=== PATIENT | male | born 1985 | race Caucasian/White ===

== ENCOUNTER 2018-08-24 11:02 | Emergency (ER) | payer MEDICARE, MEDICAID ==
--- NOTE | 2018-08-24 11:45 | UC ---
General HPI - HPI Summary HPI Summary: per mother, pt came up the stairs at home with injuries to his face and L knee. she thinks he fell, possibly down stairs but she is not certain and pt can not recall. Neither of then know if he had a seizure or not. He has had sz's since childhood but they are rare, maybe once a year. last sz was a year ago. mom offers that he has been having a 2-3 year hx of increasing difficulty with walking which causes him to fall. he last saw neurology (Dr Begum at [facility]) about 6 years ago. mom notes that he is not acting himself right now. she also confirms that he is confused which is new and when questioned about his twisting type movements, she confirms that that is new since the fall this am. pt denies current headache, neck and back pain but again is a questionable historian. - History of Current Complaint Chief Complaint: UCTrauma Stated Complaint: S/P FALL LEFT KNEE/BLOODY NOSE Time Seen by Provider: 08/24/18 11:27 Hx Obtained From: Patient, Family/Seed Corn Manager Production Hx From Patient Unobtainable Due To: Altered Mental Status Onset/Duration: Sudden Onset Pain Intensity: 8 - Allergy/Home Medications Allergies/Adverse Reactions: Allergies Allergy/AdvReac Type Severity Reaction Status Date / Time No Known Allergies Allergy Verified 08/24/18 11:31 PMH/Surg Hx/FS Hx/Imm Hx Neurological History: Seizures - Surgical History Surgical History: Yes Surgery Procedure, Year, and Place: Appendectomy - Family History Known Family History: Positive: None - Social History Lives: With Family Alcohol Use: None Substance Use Type: None Smoking Status (MU): Never Smoked Tobacco Type: Cigarettes Amount Used/How Often: 1/2 pack daily - Immunization History Most Recent Influenza Vaccination: no Review of Systems All Other Systems Reviewed And Are Negative: No Musculoskeletal: Positive: Other: - R head and face pain. Denies neck/back pain Neurological: Negative: Headache - Comments Additional Review of Systems Comments: PT HAS AMS THUS ROS LIMITED Physical Exam Triage Information Reviewed: Yes Vital Signs: Initial Vital Signs Temp 98.2 F 08/24/18 11:23 Pulse 107 08/24/18 11:23 Resp 20 08/24/18 11:23 BP 119/96 08/24/18 11:23 Pulse Ox 96 08/24/18 11:23 Vital Signs Reviewed: Yes Eyes: Positive: Conjunctiva Clear, Other: - perrl, eomi ENT: Positive: Pharynx normal, TMs normal, Other - Unable to see turbinates on R due to swelling but no overt septal hematomas. fresh blood noted. Neck: Positive: Supple, Nontender, No Lymphadenopathy, Other: - c-spine non tender. Respiratory: Positive: Chest non-tender, Lungs clear, Normal breath sounds Cardiovascular: Positive: RRR, No Murmur Abdomen Description: Positive: Nontender, No Organomegaly, Soft. Negative: Distended, Guarding Bowel Sounds: Positive: Present Musculoskeletal: Positive: Other: - R side of head/face with extensive bruising , swelling and tenderness including nose. Dry blood noted. No overt occlusion with rom mouth. c-spine, back, pelvis, bue's and rle are non tender. L knee is tender and mildly swollen. rest of lle is non tender. Neurological: Positive: Other: - Alert but confused to details of injury. only responds with yes/no answers. able to perform basic commands. CN grossly intact. sensation and 5/5 strength intact x 4. constant rhythmic movements(new since injury) thus no reflexes obtained. no attempts to test gait. GCS=(4/3/6 ) 13. Psychological: Positive: Normal Response To Family Skin: Negative: Rashes Course/Dx - Course Course Of Treatment: family agrees to ER transfer. [facility] does not have neurology and mother declined [place]. they will go to [facility] by EMD. Report called to Dr Hinojosa. He was advised of acute confusion, trauma to R head/face/L knee and new onset chores/rhythmic movements since injury and sz hx. - Differential Dx - Multi-Symptom Differential Diagnoses: Other - includes but not limited to: sz, post ictal with secondary trauma. worsening chronic intracranial pathology given worsening gait disturbance with falls. sz medication toxicity. acute intracranial pathology. - Diagnoses Provider Diagnosis: Facial trauma, Head trauma, Acute focal neurological deficit, Chorea Discharge - Sign-Out/Discharge Documenting (check all that apply): Patient Departure All imaging exams completed and their final reports reviewed: No Studies - Discharge Plan Condition: Stable Disposition: TRANS HIGHER LVL OF CARE FAC Referrals: Terri Scales MD [Primary Care Provider] - - Billing Disposition and Condition Condition: STABLE Disposition: Trans Higher Lvl of Care Fac
[2018-08-24 12:01] VITALS: BP 160/72
== END 2018-08-24 11:58 | disposition short-term general hospital (02) ==
LOC: UCCORT 11:02
DX: S09.93XA Unspecified injury of face, initial encounter (principal); S09.90XA Unspecified injury of head, initial encounter; W10.9XXA Fall (on) (from) unspecified stairs and steps, initial encounter; Y92.009 Unspecified place in unspecified non-institutional (private) residence as the place of occurrence of the external cause; R29.818 Other symptoms and signs involving the nervous system; G25.5 Other chorea
CPT/HCPCS: 99213; G0463

== ENCOUNTER 2018-08-24 12:59 | Inpatient (IN) | payer MEDICARE, MEDICAID ==
--- NOTE | 2018-08-24 13:27 | ED ---
Adult Trauma - HPI Summary HPI Summary: This pt is a 33 y/o male presenting to [facility] via EMS from [facility] for trauma to the face and knees s/p unwitnessed fall this morning. Mother states she thinks pt possibly fell after his knee gave out but is not certain. Pt reports he does not remember what happened or how he fell. He does not know if he had head strike. Pt has hx of seizures but neither mother or pt know if pt had a seizure today. Pt presents to the ED with bruising on his face and knees, c/o facial pain. Additionally pt has constant sudden movements/twitching, which mother states are new since the fall. Denies chest pain, SOB, nausea, vomiting, headache. Pt takes Dilantin for seizures. His neurologist is Dr. Begum. - History of Current Complaint Chief Complaint: EDHeadInjury Stated Complaint: FALL Time Seen by Provider: 08/24/18 13:09 Hx Obtained From: Patient, Family/Patient Care Nursing Assistant - Mother Mechanism of Injury: Fall Loss of Consciousness: prolonged (minutes) Onset/Duration: Started Hours Ago, Traumatic, Still Present Onset of Pain: Immediate Current Severity: Moderate Pain Intensity: 4 Pain Scale Used: 0-10 Numeric Location: Other - face Aggravating Factor(s): Nothing Alleviating Factor(s): Nothing Associated Signs & Symptoms: Positive: Loss of Consciousness, Other: - NEG: headache. POS: facial pain, bruising. Negative: SOB, Chest Pain, Fever, Nausea/ Vomiting - Allergy/Home Medications Allergies/Adverse Reactions: Allergies Allergy/AdvReac Type Severity Reaction Status Date / Time No Known Allergies Allergy Verified 08/24/18 11:31 Home Medications: Home Medications Phenytoin CAP(*) [Dilantin CAP(*)] 600 mg PO BEDTIME 08/24/18 [History Confirmed 08/24/18] Potassium Chlor TAB* [Klor Con ER TAB*] 10 meq PO QPM 08/24/18 [History Confirmed 08/24/18] PMH/Surg Hx/FS Hx/Imm Hx Endocrine/Hematology History: Denies: Hx Diabetes Cardiovascular History: Denies: Hx Hypertension Neurological History: Reports: Hx Seizures - Surgical History Surgery Procedure, Year, and Place: Appendectomy Infectious Disease History: No Infectious Disease History: Denies: Traveled Outside the [place] in Last 30 Days - Family History Known Family History: Positive: Cardiac Disease - granfather with [facility] Negative: Hypertension, Diabetes - Social History Alcohol Use: None Substance Use Type: Reports: None Smoking Status (MU): Never Smoked Tobacco Type: Cigarettes Amount Used/How Often: 1/2 pack daily Review of Systems Negative: Fever, Chills ENT: Other - POS: facial pain Negative: Chest Pain Negative: Shortness Of Breath Negative: Vomiting, Nausea Positive: Bruising - in face and knees Neurological: Other - POS: LOC, twitching Negative: Headache All Other Systems Reviewed And Are Negative: Yes Physical Exam - Summary Physical Exam Summary: VITAL SIGNS: Reviewed. GENERAL: Patient is a well-developed and nourished male who is lying comfortable in the stretcher. Patient is not in any acute respiratory distress. HEAD AND FACE: Facial hematoma from his forehead to his cheeks. EYES: PERRLA, EOMI x 2, No injected conjunctiva, no nystagmus. EARS: Hearing grossly intact. Ear canals and tympanic membranes are within normal limits. MOUTH: Oropharynx within normal limits. NECK: Supple, trachea is midline, no adenopathy, no JVD, no carotid bruit, no c- spine tenderness, neck with full ROM. CHEST: Symmetric, no tenderness at palpation LUNGS: Clear to auscultation bilaterally. No wheezing or crackles. CVS: Regular rate and rhythm, S1 and S2 present, no murmurs or gallops appreciated. ABDOMEN: Soft, non-tender. No signs of distention. No rebound, no guarding, and no masses palpated. Bowel sounds are normal. EXTREMITIES: FROM in all major joints. Pt has ecchymosis in both knees. NEURO: Alert and oriented x 3. Speech is normal and follows commands. Constant movements. SKIN: Dry and warm GCS: 15 Triage Information Reviewed: Yes Vital Signs On Initial Exam: Initial Vitals Temp Pulse Resp BP Pulse Ox 99.2 F 106 19 120/95 94 08/24/18 13:03 08/24/18 13:03 08/24/18 13:03 08/24/18 13:03 08/24/18 13:03 Vital Signs Reviewed: Yes Diagnostics - Vital Signs Vital Signs Temp Pulse Resp BP Pulse Ox 08/24/18 13:03 99.2 F 106 19 120/95 94 - Laboratory Result Diagrams: 08/24/18 13:36 08/24/18 13:36 Lab Statement: Any lab studies that have been ordered have been reviewed, and results considered in the medical decision making process. - CT Brain CT CT Interpretation Completed By: Radiologist Summary of CT Findings: IMPRESSION: Limited study. No acute intracranial pathology. Dr. Reeves has reviewed this report. - EKG 14:54 Cardiac Rate: Tachycardia - at 106 bpm EKG Rhythm: Sinus Tachycardia Summary of EKG Findings: Poor quality EKG secondary to sudden extra movements. No ST elevations. Re-Evaluation - Re-Evaluation First Eval Re-Evaluation Time: 14:12 Comment: perinatal technician unable to get CT secondary to pt's movements. Pt medicated with Ativan. Second Eval Re-Evaluation Time: 14:30 Comment: perinatal technician unable to get CT cervical spine and CT maxillofacial. Adult Trauma Course/Dx - Course Assessment/Plan: This pt is a 33 y/o male presenting to [facility] via EMS from [facility] for trauma to the face and knees s/p unwitnessed fall this morning. Mother states she thinks pt possibly fell after his knee gave out but is not certain. Pt reports he does not remember what happened or how he fell. He does not know if he had head strike. Pt has hx of seizures but neither mother or pt know if pt had a seizure today. Pt presents to the ED with bruising on his face and knees, c/o facial pain. Additionally pt has constant sudden movements/ twitching, which mother states are new since the fall. Denies chest pain, SOB, nausea, vomiting, headache. Pt takes Dilantin for seizures. His neurologist is Dr. Begum. Blood work without any significant abnormality, urinalysis negative for UTI. Phenytoin level is 46.6 which is toxic. We did an EKG to check for arrhythmias and it shows a sinus tachycardia with no other abnormalities. Urine toxicology positive for opiates. Head CT impression: Limited study. No acute interval pathology. The CT of the face and C-spine are pending. He is not tolerating these tests at this time. However, the patient was placed in a C-collar. I discussed my physical exam and findings with Dr. Begum, neurologist, who came and assessed the patient. He recommends the patient to be admitted to the hospitalist and symptomatic treatment for the increased phenytoin, since this might have caused the patient to have a seizure and fall. Therefore I discussed my physical exam, findings and test results with Dr. Dowling from the hospitalist services who accepted the patient for admission. The patient is hemodynamically stable, alert and oriented 3. - Diagnoses Provider Diagnoses: Phenytoin toxicity, Seizure, Facial trauma, Head contusion - Physician Notifications Discussed Care Of Patient With: Navid Begum Time Discussed With Above Provider: 13:28 Instructed by Provider To: Other - I discussed the case with Dr. Begum, neurologist, who will see the pt in the ED. [14:54] I discussed with Dr. Dowling , hospitalist, who accepted the pt for admission. Discharge - Sign-Out/Discharge Documenting (check all that apply): Patient Departure - Admit to [facility] All imaging exams completed and their final reports reviewed: Yes - Discharge Plan Condition: Stable Disposition: ADMITTED TO [facility] - Billing Disposition and Condition Condition: STABLE Disposition: Admitted to [facility] - Attestation Statements Document Initiated by Joey: Yes Documenting Scribe: Tayler Bianchi Provider For Whom Joey is Documenting (Include Credential): Dennis Reeves MD Scribe Attestation: I, Tayler Bianchi, scribed for Dennis Reeves MD on 08/24/18 at 1905. Scribe Documentation Reviewed: Yes Provider Attestation: The documentation as recorded by the Tayler urias accurately reflects the service I personally performed and the decisions made by me, Dennis Reeves MD Status of Scribe Document: Viewed
[2018-08-24] MEDS ORDERED: NS 0.9% 1000 ML* 1,000 ML IV ONE (13:30)
[2018-08-24 13:49] LABS: ABS Basophils 0.1 10^3/ul (0-0.2); ABS Eosinophils 0 10^3/ul (0-0.6); ABS Lymphocytes 1.1 10^3/ul (1.0-4.8); ABS Monocytes 1.1 10^3/ul (0-0.8); ABS Nucleated RBC 0.1 10^3/ul; Eosinophil % 0.1 %; Hematocrit 42 % (42-52); Hemoglobin 14.2 g/dl (14.0-18.0); Mean Corpuscular HGB Conc 34 g/dl (31-36); Mean Corpuscular Hemoglobin 29 pg (27-31); Mean Corpuscular Volume 84 fL (80-94); Mean Platelet Volume 8.6 fL (7.4-10.4); Nucleated Red Blood Cells % 0.5; Platelet Count 215 10^3/ul (150-450); Red Blood Count 4.93 10^6/ul (4.00-5.40); Red Cell Distribution Width 13 % (10.5-15); White Blood Count 10.3 10^3/ul (3.5-10.8)
[2018-08-24] MEDS ORDERED: LORazepam INJ* 2 MG/ML 1 ML VIAL IV PUSH ONE (13:59)
[2018-08-24 14:07] LABS: ALT 27 U/L (7-52); AST 22 U/L (13-39); Albumin 4.5 g/dL (3.2-5.2); Albumin/Globulin Ratio 1.9 (1-3); Alkaline Phosphatase 87 U/L (34-104); Anion Gap 8 mmol/L (2-11); BUN/Creatinine Ratio 15.5 (8-20); Blood Urea Nitrogen 13 mg/dL (6-24); CO2 Carbon Dioxide 25 mmol/L (22-32); Calcium 9.1 mg/dL (8.6-10.3); Chloride 104 mmol/L (101-111); EGFR Non-African American 106.6 (>60); Globulin 2.4 g/dL (2-4); Glucose 97 mg/dL (70-100); Sodium 137 mmol/L (135-145); Total Protein 6.9 g/dL (6.4-8.9)
[2018-08-24 14:14] LABS: Alcohol < 10 mg/dL (<10)
[2018-08-24 14:32] LABS: Phenytoin 46.6 mcg/mL (10-20)
[2018-08-24] MEDS ORDERED: Ondansetron INJ* 2 MG/ML VIAL IV PRN (15:01)
[2018-08-24 15:07] LABS: Creatine Kinase 413 U/L (10-223)
[2018-08-24 15:31] LABS: Urine Appearance Clear; Urine Bacteria Absent (Absent); Urine Bilirubin Negative (Negative); Urine Blood 1+ (Negative); Urine Color Yellow; Urine Glucose Negative (Negative); Urine Ketones Trace (Negative); Urine Nitrite Negative (Negative); Urine Protein Negative (Negative); Urine Red Blood Cell Trace(0-2/hpf) (Absent); Urine Specific Gravity 1.009 (1.010-1.030); Urine Urobilinogen Negative (Negative); Urine White Blood Cell Absent (Absent)
[2018-08-24 16:05] LABS: Barbiturates Urine Screen None Detected (None Detect); Benzodiazepine Urine Screen None Detected (None Detect); Urine Cannabinoids Screen None Detected (None Detect)
[2018-08-24] MEDS: NS 0.9% 1000 ML* 1,000 ML IV SCH (17:04)
[2018-08-24] MEDS ORDERED: risperiDONE TAB* 1 MG PO ONE (18:07)
[2018-08-24] MEDS ORDERED: LORazepam INJ* 2 MG/ML 1 ML VIAL IV PUSH PRN (18:09)
--- NOTE | 2018-08-24 19:29 | HP ---
CC: Dr. Park * HISTORY AND PHYSICAL: DATE OF ADMISSION: 08/24/18 PRIMARY CARE PROVIDER: Dr. Park. CHIEF COMPLAINT: Fall. HISTORY OF PRESENT ILLNESS: Mr. Washington is a 33-year-old male who has a history of seizure disorder and is on Dilantin 600 mg p.o. at bedtime. He states approximately 2 days ago he began to have issues with his left knee. His father would state that he would be walking and the left knee would "pop out." The patient also noted that it began swelling all over the place. He was stumbling when he was walking. Today, he was walking and fell and hit his face. The patient came to the emergency room for evaluation of this. PAST MEDICAL HISTORY: Seizure disorder. PAST SURGICAL HISTORY: Appendectomy. MEDICATIONS: 1. Phenytoin 600 mg p.o. q.h.s. 2. Potassium chloride 10 mEq p.o. q.h.s. 3. Ambien 10 mg p.o. q.h.s. p.r.n. insomnia. ALLERGIES: No known drug allergies. FAMILY HISTORY: Mom and dad are both living. Mom has a history of thyroid disease. Dad has a history of COPD. SOCIAL HISTORY: The patient does not smoke. He does not drink alcohol. He does not work. He is not . He has no children. REVIEW OF SYSTEMS: A complete 11-system review of systems was obtained. Pertinent positives and negatives are as per HPI, and in addition, the patient does complain of left knee pain, but otherwise has no complaints. PHYSICAL EXAMINATION GENERAL: The patient is a well-developed, young male, seen sitting in bed, thrashing around with all 4 limbs, in a cervical collar with his chin unfortunately slipped below the collar and in no acute distress. VITAL SIGNS: Blood pressure 136/76, pulse 107, respirations 20, temp 98.8, O2 sat 96% on room air. HEENT: Pupils are equal and round. Extraocular muscles are intact. Oropharynx is clear. Oral mucosa is moist. Cervical adenopathy is not evaluated due to being in cervical collar. Thyroid is not evaluated either. The patient does have numerous bruises noted on his face. PULMONARY: Lungs are clear to auscultation bilaterally. CARDIAC: Normal S1, S2. Heart rate is tachycardic, but regular. There is no lower extremity edema. ABDOMEN: Bowel sounds are present. Abdomen is soft, nontender, nondistended. EXTREMITIES: There is slight pain to palpation of the left knee. MUSCULOSKELETAL: The patient has no cyanosis or clubbing of the digits. There is full active range of motion of all 4 extremities. NEUROLOGIC: Cranial nerves II through XII appear to be grossly intact. Sensation is intact to light touch throughout. Strength appears to be normal throughout. Again, the patient has choreoathetosis. PSYCH: The patient is alert. He is oriented x3. Affect appears appropriate. SKIN: Warm and dry. There are no rashes. There are what appeared to be abrasions on the bilateral knees. DIAGNOSTIC STUDIES/LAB DATA: WBC 10.3, hemoglobin 14.2, hematocrit 42, platelets 215. Sodium 137, potassium 4.0, chloride 104, CO2 25, BUN 13, creatinine 0.84, glucose 97, lactic acid 0.7, calcium 9.1. Bilirubin 0.5, AST 22, ALT 27, alk phos 87. CPK 413. Albumin 4.5. Urinalysis reveals a specific gravity of 1.009 and otherwise negative for signs of infection. Phenytoin level is elevated at 44.6. Serum alcohol less than 10. Urine drug screen positive for opiates. CT brain reveals a limited study, though no acute intracranial pathology is identified. EKG reveals sinus tachycardia, but difficult to evaluate baseline due to motion artifact. ASSESSMENT AND PLAN: Mr. Washington is a 33-year-old male with a history of seizure disorder, who has been treated with phenytoin 600 mg p.o. q.h.s., presented to the emergency room with 2 days of having difficulty with ambulation and swelling of the limbs and is found to be phenytoin toxic. 1. Phenytoin toxicity. It is unclear who has been managing his phenytoin dosing and levels. The patient no longer follows with the neurology group in [place]. It does not sound like he follows with anybody in [place] either. At this point, the patient's phenytoin will be discontinued. His phenytoin level will be monitored on a daily basis. The patient will have IV fluids and p.r.n. antiemetics. We will try low-dose Risperdal to see if that helps with the choreoathetosis. Additionally, p.r.n. Ativan will be available for agitation. The patient did sustain a significant fall and should remain in the cervical collar until CT of the cervical spine is obtained. This is being held off on due to the likelihood that it will be a poor quality due to the choreoathetosis at this time. Likewise, maxillofacial CT scan has been ordered and this too is pending. I will obtain an x- ray of the left knee due to the patient's complaint of pain. 2. DVT prophylaxis: According to the Adult Thrombosis Prophylaxis Risk Factor Assessment Guide, the patient has a total risk factor score of 1 making him a low risk. Ambulation will be utilized as DVT prophylaxis. 3. Code status is full. The patient indicates that his mom and dad will be his healthcare proxies. TIME SPENT: 50 minutes was spent admitting this patient. [id number]/[facility] #: [id number] MTDD
--- NOTE | 2018-08-24 20:03 | CONS ---
NEUROLOGY CONSULTATION: DATE OF CONSULT: 08/24/18 REFERRING PHYSICIAN: Dr. Reeves. LOCATION: He is in the emergency room to be admitted. CHIEF COMPLAINT: Fall, history of seizures. HISTORY OF PRESENT ILLNESS: Max Washington is a 33-year-old developmentally handicapped man with seizures since childhood. I had seen him years ago for treatment of his epilepsy, but have not seen him in many years. His mother reports that they were seeing a neurologist in [place], but they have not seen that neurologist for 6 to 7 years. She says he has not had a seizure for 6 years. Today, he fell on his face. We do not know if he had a seizure or not and he is not able to say. He does not remember he felt dizzy or any other symptoms before. He came in to the emergency room and was found to have a Dilantin level of 46.6. He says he has been taking his Phenytek 300 mg every day reliably. His mother believes that he has but she leaves this up to him. He has not had any new medications recently. There is no evidence of liver dysfunction on his chemistry profile. PAST MEDICAL HISTORY: Otherwise notable for developmental disability, epilepsy , depression, and anxiety. MEDICATIONS: At home consist of: 1. Phenytek 300 mg p.o. daily. 2. Potassium supplementation. 3. Sertraline 50 mg p.o. daily. 4. Metoprolol 100 mg daily. 5. Buspirone 10 mg t.i.d. p.r.n. anxiety. 6. Trazodone 50 mg p.o. q.h.s. ALLERGIES: He has no known allergies. REVIEW OF SYSTEMS: Negative for headache in spite of his facial trauma. He denies any intestinal problems. No recent nausea, vomiting, or constipation. He denies double vision, but he has chronic strabismus. He denies any chest pain or breathing problems. He does not remember falling. PHYSICAL EXAMINATION: He is a large man and a little bit overweight. Temperature 98.3, blood pressure 138/64, heart rate running about 100, respiratory rate is 20, and oxygen saturation is 96% on room air. He has fresh abrasions and contusions on his face and forehead. He has dry blood on his lips. There is no trauma of the extremities. His neck is supple. There is no trauma on the posterior head. His tongue appears normal without tongue trauma. Heart is in a regular rhythm without murmurs. There are no cervical bruits. On neurological exam, pupils react equally from 4-1/2 down to 3 mm. He has nystagmus in left gaze and he has failure of abduction in the right eye. Facial musculature is somewhat distorted from bruising, but appeared symmetrical. Facial sensation to light touch is intact. He has normal strength in arms and legs. He has diffuse generalized choreoathetosis. He has difficulty with [id number] maneuver. He is alert and a very poor historian with very poor recollection of details. Language is simple but fluent. LABORATORY DATA: Includes a brain CT interpreted as normal. A CT of the facial bones and cervical spine are pending and he has a collar on. Other laboratory data is notable for a normal chemistry profile, elevated CPK at 413, lactic acid 0.7. Dilantin level is 46.6. Urinalysis is notable for 1+ blood. CBC is normal. IMPRESSION AND PLAN: Dilantin toxicity. It is unclear if he had a seizure or not, but he is certainly Dilantin toxic with generalized choreoathetosis and undoubtedly ataxia. His level is high enough where he should be admitted and put on telemetry. There is risk of cardiac arrhythmias. So far, his liver enzymes are normal and a CBC should be followed. I will hold further Dilantin until his level gets down to at least the mid to high 20s. He should have a Dilantin level every morning. He should not be allowed to ambulate without assistance. I have discussed my opinion with Max as well as Dr. Reeves and his mother. [id number]/[facility] #: [id number] [facility]
[2018-08-25] MEDS: Zolpidem TAB* 10 MG PO PRN ×2 (00:55→22:12)
[2018-08-25] MEDS: NS 0.9% 1000 ML* 1,000 ML IV SCH ×2 (03:51→18:12)
[2018-08-25 06:11] LABS: ABS Basophils 0 10^3/ul (0-0.2); ABS Eosinophils 0.1 10^3/ul (0-0.6); ABS Lymphocytes 1.3 10^3/ul (1.0-4.8); ABS Monocytes 0.7 10^3/ul (0-0.8); ABS Neutrophils 3.3 10^3/ul (1.5-7.7); ABS Nucleated RBC 0 10^3/ul; Hematocrit 44 % (42-52); Hemoglobin 14.8 g/dl (14.0-18.0); Lymphocyte % 24.8 %; Mean Corpuscular HGB Conc 34 g/dl (31-36); Mean Corpuscular Hemoglobin 29 pg (27-31); Mean Corpuscular Volume 87 fL (80-94); Nucleated Red Blood Cells % 0.2; Platelet Count 175 10^3/ul (150-450); Red Blood Count 5.07 10^6/ul (4.00-5.40); Red Cell Distribution Width 14 % (10.5-15); White Blood Count 5.4 10^3/ul (3.5-10.8)
[2018-08-25 06:30] LABS: BUN/Creatinine Ratio 13.8 (8-20); Calcium 9.1 mg/dL (8.6-10.3); EGFR Non-African American 112.8 (>60); Potassium 3.7 mmol/L (3.5-5.0)
[2018-08-25 06:41] LABS: Phenytoin 41.5 mcg/mL (10-20)
--- NOTE | 2018-08-25 11:33 | PN ---
Subjective Date of Service: 08/25/18 Interval History: Pt is feeling ok today. He denies any pain or SOB. He only answers questions with yes/no answers and doesn't seem to comprehend the severity of his acute illness. Objective Active Medications: Sodium Chloride (Ns 0.9% 1000 Ml*) 1,000 mls @ 100 mls/hr IV PER RATE VIKTOR Last Admin: 08/25/18 03:51 Dose: 100 mls/hr Lorazepam (Ativan Inj*) 0.5 mg IV PUSH Q6H PRN PRN Reason: AGITATION Ondansetron HCl (Zofran Inj*) 4 mg IV Q6H PRN PRN Reason: NAUSEA Zolpidem Tartrate (Ambien Tab*) 10 mg PO QPM PRN PRN Reason: SLEEP Last Admin: 08/25/18 00:55 Dose: 10 mg Vital Signs - 8 hr 08/25/18 08/25/18 08/25/18 04:00 08:00 10:30 Temperature 97.9 F 97.5 F Pulse Rate 89 86 Respiratory 20 12 12 Rate Blood Pressure 147/89 137/72 (mmHg) O2 Sat by Pulse 100 97 Oximetry Oxygen Devices in Use Now: None Appearance: Young male sitting up in bed with cervical collar in place,NAD Eyes: No Scleral Icterus Ears/Nose/Mouth/Throat: Mucous Membranes Moist Respiratory: Symmetrical Chest Expansion and Respiratory Effort, Clear to Auscultation Cardiovascular: NL Sounds; No Murmurs; No JVD, RRR, No Edema Abdominal: NL Sounds; No Tenderness; No Distention Extremities: No Clubbing, Cyanosis Skin: No Nodules or Sclerosis, - - abraision noted to R zygomatic arch and lateral aspect of R eye, mild bruising noted Neurological: Alert and Oriented x 3 Result Diagrams: 08/25/18 05:35 08/25/18 05:35 Assess/Plan/Problems-Billing Mr Washington is a 33 yo M who has a h/o seizure disorder treated with phenytoin who presented to the ER with c/o falls and was found to be phenytoin toxic. - Patient Problems (1) Phenytoin toxicity Current Visit: Yes Status: Acute Code(s): T42.0X1A - POISONING BY HYDANTOIN DERIVATIVES, ACCIDENTAL, INIT SNOMED Code(s): 60626740 Comment: Pt's phenytoin level is still markedly elevated. He is much less choreoathetotic today. Will d/c IVF as pt is eating/drinking well. Continue to hold phenytoin. Will need to be resumed once level closer to the therapeutic range. Will need close titration and monitoring. (2) Seizure disorder Current Visit: Yes Status: Acute Code(s): G40.909 - EPILEPSY, UNSP, NOT INTRACTABLE, WITHOUT STATUS EPILEPTICUS SNOMED Code(s): 904897106 Comment: Phenytoin on hold as above. Monitor for seizure activity. (3) DVT prophylaxis Current Visit: Yes Status: Acute Code(s): DAI6280 - SNOMED Code(s): 081999295 Comment: ambulation (4) Full code status Current Visit: Yes Status: Acute Code(s): Z78.9 - OTHER SPECIFIED HEALTH STATUS SNOMED Code(s): 977614232
[2018-08-25] MEDS ORDERED: Acetaminophen TAB* 325 MG PO PRN (18:59)
--- NOTE | 2018-08-25 21:21 | CONS ---
NEUROLOGICAL FOLLOWUP NOTE: DATE OF SERVICE: 08/25/18 PATIENT OF: Dr. Park and Dr. Dowling. HISTORY: This is a neurological followup on this 33-year-old man with chronic seizure disorder, who presented with Dilantin toxicity. He feels somewhat better today, but his history has remained somewhat vague. He has had no recent seizures. He has developmental delay and depression on exam. MEDICATIONS: He has as-needed medicines includin. Ambien. 2. Zofran. 3. Ativan for agitation. REVIEW OF SYSTEMS: Review of systems for acute problems is negative. He denies any headache even though he has bruising on his right side of his face. PHYSICAL EXAMINATION: Temperature 97.3, pulse 82, respirations 20, blood pressure 135/76. He is alert and oriented. Cranial nerves II through XII show a right esotropia, which is old. Nystagmus in all directions of 4 or 5 beats. Mild past pointing bilaterally. Motor exam revealed normal tone and strength. Chest: Clear. Cardiovascular: Regular rate and rhythm. Abdomen is soft with positive bowel sounds. LABORATORY DATA: CBC today was normal as was BMP. His Dilantin level today was 41.6 and had been 46 yesterday. IMPRESSION AND PLAN: I discussed with him and his parents it is hard know how his Dilantin level will resolve. This would decrease down and we will need to check a level tomorrow. It is possible but not for sure that his level will be low enough and he will be better enough and he will be safe to go home by [place] they asked and I think it is a distinct possibility, but could not promise it definitively. Once his level is in the therapeutic range, we will have to make further decisions about what anticonvulsants to go on. Thank you for sharing his case. [id number]/[facility] #: [id number] RAMONE
[2018-08-26] MEDS: NS 0.9% 1000 ML* 1,000 ML IV SCH ×2 (05:17→15:36)
[2018-08-26 07:18] LABS: ABS Basophils 0 10^3/ul (0-0.2); ABS Eosinophils 0.1 10^3/ul (0-0.6); ABS Lymphocytes 1.3 10^3/ul (1.0-4.8); ABS Monocytes 0.5 10^3/ul (0-0.8); ABS Neutrophils 2.4 10^3/ul (1.5-7.7); ABS Nucleated RBC 0 10^3/ul; Eosinophil % 1.4 %; Hematocrit 40 % (42-52); Hemoglobin 13.7 g/dl (14.0-18.0); Lymphocyte % 31.1 %; Mean Corpuscular HGB Conc 34 g/dl (31-36); Mean Corpuscular Hemoglobin 29 pg (27-31); Mean Corpuscular Volume 85 fL (80-94); Mean Platelet Volume 8.7 fL (7.4-10.4); Nucleated Red Blood Cells % 0; Platelet Count 148 10^3/ul (150-450); Red Blood Count 4.69 10^6/ul (4.00-5.40); Red Cell Distribution Width 14 % (10.5-15); White Blood Count 4.3 10^3/ul (3.5-10.8)
--- NOTE | 2018-08-26 11:00 | PN ---
Subjective Date of Service: 08/26/18 Interval History: Pt is feeling well this AM. He has no complaints. He is unable to tell me when he last had his phenytoin level checked as an outpatient. Objective Active Medications: Acetaminophen (Tylenol Tab*) 650 mg PO Q4H PRN PRN Reason: HEADACHE/PAIN Last Admin: 08/25/18 19:15 Dose: 650 mg Sodium Chloride (Ns 0.9% 1000 Ml*) 1,000 mls @ 100 mls/hr IV PER RATE VIKTOR Last Admin: 08/26/18 05:17 Dose: 100 mls/hr Lorazepam (Ativan Inj*) 0.5 mg IV PUSH Q6H PRN PRN Reason: AGITATION Ondansetron HCl (Zofran Inj*) 4 mg IV Q6H PRN PRN Reason: NAUSEA Last Admin: 08/25/18 19:55 Dose: 4 mg Zolpidem Tartrate (Ambien Tab*) 10 mg PO QPM PRN PRN Reason: SLEEP Last Admin: 08/25/18 22:12 Dose: 10 mg Vital Signs - 8 hr 08/26/18 08/26/18 08/26/18 04:15 07:40 08:00 Temperature 98.1 F 97.9 F Pulse Rate 77 77 Respiratory 14 16 14 Rate Blood Pressure 136/86 130/82 (mmHg) O2 Sat by Pulse 100 98 Oximetry Oxygen Devices in Use Now: None Appearance: Young male sitting up in bed, NAD Eyes: No Scleral Icterus Ears/Nose/Mouth/Throat: Mucous Membranes Moist Respiratory: Symmetrical Chest Expansion and Respiratory Effort, Clear to Auscultation Cardiovascular: NL Sounds; No Murmurs; No JVD, RRR, No Edema Abdominal: NL Sounds; No Tenderness; No Distention Extremities: No Clubbing, Cyanosis Skin: No Nodules or Sclerosis, - - facial abraisions unchanged today Neurological: - - alert, very poor historian Result Diagrams: 08/26/18 07:04 08/25/18 05:35 Assess/Plan/Problems-Billing Mr Washington is a 33 yo M who has a h/o seizure disorder treated with phenytoin who presented to the ER with c/o falls and was found to be phenytoin toxic. - Patient Problems (1) Phenytoin toxicity Current Visit: Yes Status: Acute Code(s): T42.0X1A - POISONING BY HYDANTOIN DERIVATIVES, ACCIDENTAL, INIT SNOMED Code(s): 66885059 Comment: Pt's phenytoin level is still elevated but trended down to ~31 today. No choreoathetosis noted. Hold phenytoin. Per Dr. Wheeler, ?start new antiepileptic once phenytoin level in therapeutic range. (2) Seizure disorder Current Visit: Yes Status: Acute Code(s): G40.909 - EPILEPSY, UNSP, NOT INTRACTABLE, WITHOUT STATUS EPILEPTICUS SNOMED Code(s): 876032864 Comment: Phenytoin on hold as above. Monitor for seizure activity. (3) DVT prophylaxis Current Visit: Yes Status: Acute Code(s): CFR6210 - SNOMED Code(s): 984262345 Comment: ambulation (4) Full code status Current Visit: Yes Status: Acute Code(s): Z78.9 - OTHER SPECIFIED HEALTH STATUS SNOMED Code(s): 265578747
[2018-08-26] MEDS: Zolpidem TAB* 10 MG PO PRN (22:20)
[2018-08-27 06:42] LABS: ABS Basophils 0.1 10^3/ul (0-0.2); ABS Eosinophils 0.1 10^3/ul (0-0.6); ABS Lymphocytes 1.6 10^3/ul (1.0-4.8); ABS Monocytes 0.7 10^3/ul (0-0.8); ABS Neutrophils 3.1 10^3/ul (1.5-7.7); ABS Nucleated RBC 0 10^3/ul; Eosinophil % 1.5 %; Hematocrit 42 % (42-52); Hemoglobin 14.2 g/dl (14.0-18.0); Lymphocyte % 29.3 %; Mean Corpuscular HGB Conc 34 g/dl (31-36); Mean Corpuscular Hemoglobin 29 pg (27-31); Mean Corpuscular Volume 85 fL (80-94); Mean Platelet Volume 8.6 fL (7.4-10.4); Nucleated Red Blood Cells % 0; Platelet Count 165 10^3/ul (150-450); Red Blood Count 4.95 10^6/ul (4.00-5.40); Red Cell Distribution Width 13 % (10.5-15); White Blood Count 5.5 10^3/ul (3.5-10.8)
[2018-08-27 11:53] VITALS: BP 125/77
== END 2018-08-27 14:20 | disposition home or self-care (01) | DRG 918 ==
LOC: ED 12:59 → MEDTELE 15:01
PROVIDERS: ADMIT Hospitalist; ATTEND Hospitalist
DX: T42.0X1A Poisoning by hydantoin derivatives, accidental (unintentional), initial encounter (principal); R27.0 Ataxia, unspecified; G25.5 Other chorea; G40.909 Epilepsy, unspecified, not intractable, without status epilepticus; W19.XXXA Unspecified fall, initial encounter; S80.02XA Contusion of left knee, initial encounter; S80.01XA Contusion of right knee, initial encounter; S00.83XA Contusion of other part of head, initial encounter; F17.210 Nicotine dependence, cigarettes, uncomplicated; F32.9 Major depressive disorder, single episode, unspecified; F41.9 Anxiety disorder, unspecified; E66.3 Overweight; Y92.9 Unspecified place or not applicable; Z83.6 Family history of other diseases of the respiratory system; Z83.49 Family history of other endocrine, nutritional and metabolic diseases; Z82.49 Family history of ischemic heart disease and other diseases of the circulatory system; Z68.29 Body mass index [BMI] 29.0-29.9, adult; Y92.009 Unspecified place in unspecified non-institutional (private) residence as the place of occurrence of the external cause
CPT/HCPCS: 36415; 70450; 70486; 72125; 80048; 80053; 80185; 80307; 80320; 81003; 81015; 82550; 83605; 85025; 90686; 93005; 99284; A9270-GY; G0480; J2060; J2405